=== PATIENT | male | born 1955 | race Caucasian/White ===

== ENCOUNTER 2017-12-13 08:15 | Day surgery (SDC) | payer OTHER ==
[2017-12-10 11:19] VITALS: BMI 30.8
[2017-12-13] MEDS ORDERED: MIDAZOLAM HCL 2 MG/2 ML SINGLE DOSE VIAL ONE (09:22)
[2017-12-13] MEDS ORDERED: DEXAMETHASONE SOD PHOSPHATE 4 MG/1 ML VIAL ONE (09:22)
--- NOTE | 2017-12-13 11:00 | OP ---
Operative Note - Note: Operative Date: 12/13/17 Pre-Operative Diagnosis: Left kidney mid pole renal stone Findings: 5mm mid pole Left kidney stone Post-Operative Diagnosis: Same as Pre-op Surgeon: Rajan Vann Anesthesia: Fractional Estimated Blood Loss (mls): 0 Operative Report Dictated: Yes
[2017-12-13 14:50] VITALS: BP 143/88; PULSE 71; TEMP 97.6
[2017-12-13] MEDS ORDERED: oxyCODONE HCL 5 MG TABLET PO PRN (15:51)
[2017-12-13] MEDS ORDERED: ONDANSETRON 4 MG/2 ML VIAL IVPUSH PRN (15:51)
[2017-12-13] MEDS ORDERED: LACTATED RINGERS SOLUTION 1,000 ML IV SCH (16:00)
--- NOTE | 2017-12-13 22:07 | OP ---
DATE OF OPERATION: 12/13/2017 PREOPERATIVE DIAGNOSIS: Left renal stone. POSTOPERATIVE DIAGNOSIS: Left renal stone. PROCEDURE: Left extracorporeal shock wave lithotripsy. ATTENDING: Stephanie Grimm MD ANESTHESIA: Fractional. DESCRIPTION OF OPERATION: The patient was brought in the operating room and placed in supine position on the operating room table. Ultrasonography and fluoroscopy were performed. A 5-mm left mid-pole stone was identified. Anesthesia and preoperative antibiotics were then administered. Shockwave lithotripsy was then started; 2500 impulses at 18 joules of power were administered to the stone. Excellent fragmentation was noted under real-time ultrasonography and fluoroscopy. There were no complications noted. The patient tolerated the procedure very well. STEPHANIE GRIMM M.D. [id number]
== END 2017-12-13 12:00 | disposition home or self-care (01) ==
LOC: JASU-SURG 08:15
PROVIDERS: ATTEND Urology
PROC: 0TF4XZZ Fragmentation in Left Kidney Pelvis, External Approach (ICD-10-PCS; principal; 2017-12-13 09:30)
DX: N20.0 Calculus of kidney (principal)
CPT/HCPCS: 82962

== ENCOUNTER 2019-12-05 11:27 | Emergency (ER) | payer MEDICARE, OTHER ==
[2019-12-05 11:38] VITALS: BP 149/75; PULSE 86; BMI 31.3
--- NOTE | 2019-12-05 11:38 | PDOC ---
Rapid Medical Evaluation Time Seen by Provider: 12/05/19 11:33 Medical Evaluation: Allergies Allergy/AdvReac Type Severity Reaction Status Date / Time cat dander Allergy Intermediate Itching Verified 12/05/19 11:34 dog dander Allergy Intermediate Itching Verified 12/05/19 11:34 feathers Allergy Intermediate Itching Verified 12/05/19 11:34 insecticide Allergy Intermediate Rash Uncoded 12/05/19 11:34 12/05/19 11:34 I have performed a brief in-person evaluation of this patient The patient presents with a chief complaint of: L knee pain. Was walking and heard "a crack" yesterday. No fall. No h/o arthritis, gout or prior knee surgery. Taking naproxen w/ some relief. Now using 1 crutch to bear weight. H/o HTN, DM Pertinent physical exam findings:NAD, no swelling/erythema to knee, FROMI, bearing weight w/ 1 crutch I have ordered the following:XR The patient will proceed to the ED for further evaluation Discharge Disposition - Diagnosis Left knee pain Qualifiers: Chronicity: acute Qualified Code(s): M25.562 - Pain in left knee - Referrals - Patient Instructions - Post Discharge Activity
--- NOTE | 2019-12-05 12:34 | PDOC ---
History of Present Illness - General Chief Complaint: Pain, Acute Stated Complaint: LT KNEE PAIN Time Seen by Provider: 12/05/19 11:33 - History of Present Illness Initial Comments: 12/05/19 12:27 64-year-old male with a past medical history of hypertension BPH and diabetes presents for evaluation of atraumatic left knee pain x2 weeks increasing in severity since last night without any precipitating traumatic event Past History - Medical History Allergies/Adverse Reactions: Allergies Allergy/AdvReac Type Severity Reaction Status Date / Time cat dander Allergy Intermediate Itching Verified 12/05/19 11:34 dog dander Allergy Intermediate Itching Verified 12/05/19 11:34 feathers Allergy Intermediate Itching Verified 12/05/19 11:34 insecticide Allergy Intermediate Rash Uncoded 12/05/19 11:34 Home Medications: Ambulatory Orders Glyburide 2.5 mg PO DAILY 12/10/17 Glyburide 5 mg PO HS 12/10/17 Metformin HCl [Glucophage] 1,000 mg PO BID 12/10/17 Tamsulosin HCl [Flomax] 0.4 mg PO BID 12/10/17 Cetirizine HCl 10 mg PO DAILY 12/13/17 Glucosamine Sulfate Dipot Chlr [Glucosamine] 1,000 mg PO DAILY 12/13/17 Multivitamin/Iron/Folic Acid [Centrum Women Tablet] 1 tab PO DAILY 12/13/17 Oxybutynin Chloride 5 mg PO DAILY 12/13/17 Ranitidine [Zantac -] 150 mg PO BID 12/13/17 Anemia: No Asthma: No Cancer: No Cardiac Disorders: No CVA: No COPD: No CHF: No Dementia: No Diabetes: Yes GI Disorders: No Disorders: Yes (bph, hardened bladder,kidney stones) HTN: No Hypercholesterolemia: No Liver Disease: No Seizures: No Thyroid Disease: No - Surgical History Abdominal Surgery: No Appendectomy: No Cardiac Surgery: No Cholecystectomy: No Lung Surgery: No Neurologic Surgery: No - Psycho-Social/Smoking History Smoking History: Unknown if ever smoked Have you smoked in the past 12 months: No If you are a former smoker, when did you quit?: 5 years ago - Substance Abuse Hx (Audit-C & DAST Scrn) How often the patient has a drink containing alcohol: Never Score: In Men: 4 or > Positive; In Women: 3 or > Positive: 0 Screen Result (Pos requires Nsg. Audit-10AR): Negative In the last yr the pt used illegal drug/Rx for NonMed reason: No Score: Yes response is considered Positive: 0 Screen Result (Positive result requires Nsg. DAST-10): Negative Review of Systems - Review of Systems Constitutional: No: Fever *Physical Exam - Vital Signs Last Vital Signs Temp Pulse Resp BP Pulse Ox 86 18 149/75 97 12/05/19 11:35 12/05/19 11:35 12/05/19 11:35 12/05/19 11:35 - Physical Exam 12/05/19 12:31 Left knee skin color and temperature normal extension as can is is intact. Range of motion 0-90 beyond that is stiff. There is a scant intra-articular effusion medial joint line tenderness posterior medially. No instability or gross sensorimotor deficits normal hip and ankle range of motion negative straight leg raise test thigh and calf soft and nontender no gross sensorimotor deficits Medical Decision Making - Medical Decision Making 12/05/19 12:34 Mild degenerative changes without evidence of fracture trauma or destructive process. Probably medial meniscal tear weight-bear as tolerated with crutches follow-up with orthopedic surgery work note provided I have reviewed the pathophysiology with the patient. They are in agreement with the treatment plan all questions were answered to their satisfaction. Understanding for follow-up without fail was also conveyed to the patient. Again they are in agreement. Tylenol for pain. Discharge - Discharge Information Problems reviewed: Yes Clinical Impression/Diagnosis: Left knee pain Qualifiers: Chronicity: acute Qualified Code(s): M25.562 - Pain in left knee Condition: Stable Disposition: HOME - Admission No - Follow up/Referral Referrals: Brayden Hill DO [Staff Physician] - - Patient Discharge Instructions Additional Instructions: Weight-bear as tolerated with crutches follow-up with orthopedic surgery in 1 to 2 days without fail. Tylenol only for pain as directed. Return to the e mergency room for worsening symptoms. - Post Discharge Activity Work/Back to School Note: Back to Work
== END 2019-12-05 12:46 | disposition home or self-care (01) ==
LOC: JERFT 11:27
DX: M25.562 Pain in left knee (principal)
CPT/HCPCS: 73560-TC-LT-FY; 99283-25

== ENCOUNTER 2020-05-27 04:22 | Day surgery (SDC) | payer MEDICARE, OTHER ==
[2020-05-23 12:46] VITALS: BMI 31.8
[2020-05-27] MEDS ORDERED: PROPOFOL 20 ML ONE ×2 (08:04→08:25)
[2020-05-27] MEDS ORDERED: KETOROLAC TROMETHAMINE 30 MG/1 ML VIAL ONE (08:15)
[2020-05-27] MEDS ORDERED: oxyCODONE HCL 5 MG TABLET PO PRN (09:17)
[2020-05-27] MEDS ORDERED: ONDANSETRON 4 MG/2 ML VIAL IVPUSH PRN (09:17)
[2020-05-27] MEDS ORDERED: LACTATED RINGERS SOLUTION 1,000 ML IV SCH (09:30)
[2020-05-27 09:54] VITALS: BP 121/74; PULSE 57; TEMP 97.5
== END 2020-05-27 10:00 | disposition home or self-care (01) ==
LOC: JASU-SURG 04:22
PROVIDERS: ATTEND Urology
PROC: 0TF3XZZ Fragmentation in Right Kidney Pelvis, External Approach (ICD-10-PCS; principal; 2020-05-27 08:00)
DX: N20.0 Calculus of kidney (principal); E11.9 Type 2 diabetes mellitus without complications
CPT/HCPCS: 82962

== ENCOUNTER 2020-09-16 05:21 | Day surgery (SDC) | payer MEDICARE, OTHER ==
[2020-08-07 16:16] VITALS: BMI 32.4
[2020-09-16 12:34] VITALS: BP 124/56; PULSE 72; TEMP 97.7
== END 2020-09-16 12:50 | disposition home or self-care (01) ==
LOC: JASU-ENDO 05:21
PROVIDERS: ATTEND Internal Medicine Gastroenterology
PROC: 0DBL8ZX Excision of Transverse Colon, Via Natural or Artificial Opening Endoscopic, Diagnostic (ICD-10-PCS; principal; 2020-09-16 11:08)
DX: Z12.11 Encounter for screening for malignant neoplasm of colon (principal); K63.5 Polyp of colon; R10.31 Right lower quadrant pain; K64.8 Other hemorrhoids
CPT/HCPCS: 82962; 88305-TC

== ENCOUNTER 2021-05-26 07:37 | Day surgery (SDC) | payer MEDICARE, OTHER ==
[2021-05-26 08:57] VITALS: BMI 31.1
[2021-05-26 10:16] VITALS: TEMP 97.6
[2021-05-26 10:58] VITALS: BP 120/72; PULSE 61
== END 2021-05-26 11:10 | disposition home or self-care (01) ==
LOC: JASU-ENDO 07:37
PROVIDERS: ATTEND Internal Medicine Gastroenterology
PROC: 0DB68ZX Excision of Stomach, Via Natural or Artificial Opening Endoscopic, Diagnostic (ICD-10-PCS; 2021-05-26)
PROC: 0DB28ZX Excision of Middle Esophagus, Via Natural or Artificial Opening Endoscopic, Diagnostic (ICD-10-PCS; 2021-05-26)
PROC: 0DB38ZX Excision of Lower Esophagus, Via Natural or Artificial Opening Endoscopic, Diagnostic (ICD-10-PCS; 2021-05-26)
PROC: 0DB98ZX Excision of Duodenum, Via Natural or Artificial Opening Endoscopic, Diagnostic (ICD-10-PCS; principal; 2021-05-26 10:00)
DX: K21.9 Gastro-esophageal reflux disease without esophagitis (principal); K29.50 Unspecified chronic gastritis without bleeding
CPT/HCPCS: 82962; 88305-TC; 88342-TC

== ENCOUNTER 2021-11-06 17:43 | Emergency (ER) | payer MEDICARE, OTHER ==
[2021-11-06 17:47] VITALS: BP 159/71; PULSE 97; RESP 18; TEMP 99; BMI 31.1
[2021-11-06] MEDS ORDERED: SODIUM CHLORIDE 0.9% 1000 ML INFUS.BAG IV ONE (19:17)
[2021-11-06 19:32] LABS: BASO % 0.5 % (0-2.0); EOS % 0.1 % (0-4.5); HEMATOCRIT 41.3 % (35.4-49); HEMOGLOBIN 14.2 GM/dL (11.7-16.9); LYMPH % 8.8 % (8-40); MCH 30.7 pg (25.7-33.7); MCHC 34.4 g/dl (32.0-35.9); MEAN CELL VOLUME 89.2 fl (80-96); MONO % 4.8 % (3.8-10.2); NEUT % 85.8 % (42.8-82.8); PLATELET COUNT 240 10^3/uL (134-434); RBC 4.63 M/mm3 (4.00-5.60); RDW 13.9 % (11.9-15.9); WHITE BLOOD COUNT 15.2 K/mm3 (4.0-10.0)
[2021-11-06 20:08] LABS: EPI CELLS 1 /uL (0-25.1); HYALINE CASTS 1 /uL (0-3.1); PH,URINE 6.5 (5.0-8.0); URINE APPEARANCE CLEAR; URINE BACTERIA 1784 /uL (0-1359); URINE BILIRUBIN NEGATIVE (NEGATIVE); URINE COLOR YELLOW; URINE GLUCOSE (UA) 3+ (NEGATIVE); URINE KETONE NEGATIVE (NEGATIVE); URINE LEUK ESTERASE 1+ (NEGATIVE); URINE NITRITE NEGATIVE (NEGATIVE); URINE PROTEIN TRACE (NEGATIVE); URINE RBC 8 /uL (0-23.9); URINE UROBILINOGEN 0.2 mg/dL (0.2-1.0); URINE WBC 401 /uL (0-25.8); VENOUS BASE EXCESS 1.2 mmol/L (-2-2); VENOUS O2 SATURATION 21.1 % (70-80); VENOUS PCO2 43.4 mmHg (38-52); VENOUS PH 7.4 (7.310-7.410)
[2021-11-06 20:36] LABS: ALBUMIN 4.4 g/dl (3.4-5.0); CALCIUM 8.9 mg/dL (8.5-10.1)
[2021-11-06 20:37] LABS: BLOOD UREA NITROGEN 29.5 mg/dL (7-18)
[2021-11-06 20:39] LABS: CREATININE 1.7 mg/dL (0.55-1.3)
[2021-11-06 20:40] LABS: TOT PROT 8.3 g/dl (6.4-8.2)
[2021-11-06 20:41] LABS: BILIRUBIN,TOTAL 1.4 mg/dL (0.2-1)
[2021-11-06] MEDS ORDERED: CEFTRIAXONE 1,000 MG in DEXTROSE 5%-WATER - 50 ML IVPB ONE (21:20)
[2021-11-06] MEDS ORDERED: CEFTRIAXONE 1 GM/50 ML BAG ONE (22:04)
== END 2021-11-06 22:10 | disposition left against medical advice (07) ==
LOC: JER 17:43
DX: N30.01 Acute cystitis with hematuria (principal)
CPT/HCPCS: 36415; 71045-TC-FY; 80053; 81003; 82010; 82803; 82962; 85025; 87086; 87186; 93005; 93010; 99285-25